=== PATIENT | female | born 1995 | race African-American/Black ===

== ENCOUNTER 2020-12-07 09:51 | Inpatient (IN) ==
[2020-12-07] MEDS ORDERED: LACTATED RINGERS 1,000 ML IV ONE ×2 (09:59→16:11)
[2020-12-07] MEDS ORDERED: FAMOTIDINE 20 MG/2 ML VIAL IV ONE (09:59)
[2020-12-07] MEDS ORDERED: CITRIC ACID/SODIUM CITRATE 30 ML UDCUP PO ONE (09:59)
[2020-12-07] MEDS ORDERED: ONDANSETRON 4 MG/2 ML VIAL IV ONE (10:02)
[2020-12-07 10:21] LABS: Basophils % 0.1 % (0.0-0.8); Eosinophils # 0.2 10*3/uL (0.0-0.87); Eosinophils % 2.7 % (0.00-10.9); Hematocrit 36.5 VOL% (35.7-47.0); Immature Granulocytes % 0.5 %; Immature Granulocytes Absolute 0.04 #; Lymphocytes # 2.1 10*3/uL (1.4-4.0); Mean Corpuscular HGB Conc 32.9 GM/DL (32-36); Mean Corpuscular Volume 88.4 FL (87-102); Mean Platelet Volume 10.5 FL (9.6-12.0); Monocytes % 11.1 % (1.7-12.7); Neutrophils % 56.6 % (38.7-73.9); Platelet Count 195 T/CUMM (130-400); Red Blood Count 4.13 MC/CUMM (3.8-5.5); Red Cell Distribution Width 13.2 % (9.3-17.3); White Blood Count 7.3 T/CUMM (4-12)
[2020-12-07] MEDS ORDERED: ceFAZolin 2,000 MG in PREMIX 1 EACH IV ONE (10:35)
[2020-12-07] MEDS ORDERED: LACTATED RINGERS 1,000 ML IV SCH ×2 (11:00→17:00)
[2020-12-07] MEDS ORDERED: OXYTOCIN/LR 30 UNIT/1,000 ML BAG IV ONE (12:30)
[2020-12-07] MEDS ORDERED: OXYTOCIN 10 UNIT/ML VIAL IM ONE (12:30)
[2020-12-07] MEDS ORDERED: miSOPROStoL 200 MCG TABLET ONE (14:27)
[2020-12-07] MEDS ORDERED: OXYTOCIN/LR 20 UNIT/1,000 ML BAG IV ONE ×2 (14:27→16:59)
[2020-12-07] MEDS ORDERED: TRANEXAMIC ACID 1,000 MG/10 ML VIAL ONE (14:27)
[2020-12-07] MEDS ORDERED: SODIUM CHLORIDE 0.9% 0 ML IV ONE (14:28)
[2020-12-07] MEDS ORDERED: METHYLERGONOVINE 0.2 MG/1 ML AMP ONE (14:28)
[2020-12-07] MEDS ORDERED: CARBOPROST TROMETHAMINE 250 MCG/ML AMP IM ONE (14:28)
[2020-12-07] MEDS ORDERED: ONDANSETRON 4 MG/2 ML VIAL ONE (15:39)
[2020-12-07] MEDS ORDERED: BUPIVACAINE SPINAL 0.75% 2 ML AMP SPINAL ONE (15:39)
[2020-12-07] MEDS ORDERED: PHENYLEPHRINE 1 MG/10 ML SYRINGE IV ONE (15:39)
[2020-12-07 16:44] LABS: Cord Arterial Blood HCO3 21.7 MMOL/L
[2020-12-07 16:51] LABS: Cord Venous Blood HCO3 23.7 MMOL/L; Cord Venous Blood PCO2 42.3 MMHG; Cord Venous Blood PO2 28.7 MMHG
[2020-12-07] MEDS ORDERED: SIMETHICONE CHEW 80 MG TABLET PO PRN (16:59)
[2020-12-07] MEDS ORDERED: ONDANSETRON 4 MG/2 ML VIAL IV PRN (16:59)
[2020-12-07] MEDS ORDERED: RHO(D) IMMUNE GLOBULIN 300 MCG SYRINGE IM ONE (16:59)
[2020-12-07] MEDS ORDERED: ACETAMINOPHEN 325 MG TABLET PO PRN (16:59)
[2020-12-07] MEDS ORDERED: MAGNESIUM HYDROXIDE SUSP 30 ML UDCUP PO PRN (16:59)
[2020-12-07] MEDS ORDERED: ACETAMINOPHEN 500 MG TABLET PO PRN (17:52)
[2020-12-07] MEDS: KETOROLAC 30 MG/1 ML VIAL IV SCH ×2 (18:07→23:47)
[2020-12-07] MEDS: ACETAMINOPHEN 500 MG TABLET PO SCH (18:08)
[2020-12-07] MEDS: DOCUSATE SODIUM 100 MG CAPSULE PO SCH (21:41)
[2020-12-07] MEDS: ceFAZolin 1,000 MG in SYRINGE 1 EACH IV SCH (23:48)
[2020-12-08 01:11] LABS: Basophils % 0.3 % (0.0-0.8); Eosinophils # 0.1 10*3/uL (0.0-0.87); Eosinophils % 1.5 % (0.00-10.9); Hematocrit 34.6 VOL% (35.7-47.0); Hemoglobin 11.2 GM/DL (12.0-16.0); Immature Granulocytes % 0.7 %; Immature Granulocytes Absolute 0.05 #; Lymphocytes # 2.2 10*3/uL (1.4-4.0); Lymphocytes % 28.9 % (21.3-54.2); Mean Corpuscular HGB Conc 32.4 GM/DL (32-36); Mean Corpuscular Volume 89.4 FL (87-102); Mean Platelet Volume 11.1 FL (9.6-12.0); Monocytes % 8.6 % (1.7-12.7); Platelet Count 169 T/CUMM (130-400); Red Blood Count 3.87 MC/CUMM (3.8-5.5); White Blood Count 7.5 T/CUMM (4-12)
[2020-12-08] MEDS: KETOROLAC 30 MG/1 ML VIAL IV SCH ×2 (05:40→11:42)
[2020-12-08] MEDS: ACETAMINOPHEN 500 MG TABLET PO SCH ×3 (05:40→11:41)
[2020-12-08] MEDS: ceFAZolin 1,000 MG in SYRINGE 1 EACH IV SCH (07:56)
[2020-12-08] MEDS: METOCLOPRAMIDE 10 MG TABLET PO SCH ×2 (07:57→15:30)
[2020-12-08 08:23] LABS: Basophils % 0.3 % (0.0-0.8); Eosinophils # 0.2 10*3/uL (0.0-0.87); Eosinophils % 2.8 % (0.00-10.9); Hematocrit 33.8 VOL% (35.7-47.0); Hemoglobin 11.3 GM/DL (12.0-16.0); Immature Granulocytes % 0.7 %; Immature Granulocytes Absolute 0.04 #; Lymphocytes # 1.7 10*3/uL (1.4-4.0); Lymphocytes % 27.4 % (21.3-54.2); Mean Corpuscular HGB Conc 33.4 GM/DL (32-36); Mean Corpuscular Volume 87.6 FL (87-102); Mean Platelet Volume 10.8 FL (9.6-12.0); Monocytes % 10.5 % (1.7-12.7); Neutrophils % 58.3 % (38.7-73.9); Platelet Count 157 T/CUMM (130-400); Red Blood Count 3.86 MC/CUMM (3.8-5.5); Red Cell Distribution Width 13.2 % (9.3-17.3); White Blood Count 6.1 T/CUMM (4-12)
[2020-12-08] MEDS: DOCUSATE SODIUM 100 MG CAPSULE PO SCH ×2 (10:39→20:33)
[2020-12-08] MEDS: MULTIVITAMIN (PRENATAL) TABLET PO SCH (10:40)
[2020-12-08] MEDS: IBUPROFEN 800 MG TABLET PO PRN (20:33)
[2020-12-09] MEDS: METOCLOPRAMIDE 10 MG TABLET PO SCH (03:34)
[2020-12-09] MEDS: IBUPROFEN 800 MG TABLET PO PRN (06:05)
[2020-12-09 07:02] VITALS: BP 110/61
[2020-12-09] MEDS: DOCUSATE SODIUM 100 MG CAPSULE PO SCH (09:46)
[2020-12-09] MEDS: MULTIVITAMIN (PRENATAL) TABLET PO SCH (09:47)
== END 2020-12-09 13:15 | disposition home or self-care (01) | DRG 540 ==
LOC: N.LD 09:51 → N.OB 21:15
PROVIDERS: ADMIT Obstetrics & Gynecology; ATTEND Obstetrics & Gynecology
PROC: LDCSECT (ICD-10-PCS; 2020-12-07 13:15)